=== PATIENT | female | born 1980 | race Caucasian/White ===

== ENCOUNTER 2017-09-15 11:02 | Emergency (ER) | payer SELFPAY ==
[2017-09-15 12:18] LABS: Hematocrit 38 % (35-47); Hemoglobin 12.9 g/dl (12.0-16.0); Mean Corpuscular HGB Conc 34 g/dl (31-36); Mean Corpuscular Hemoglobin 31 pg (27-31); Mean Corpuscular Volume 91 fL (80-97); Mean Platelet Volume 8 um3 (7.4-10.4); Red Blood Count 4.16 10^6/ul (4.0-5.4); Red Cell Distribution Width 14 % (10.5-15)
--- NOTE | 2017-09-15 12:22 | RAD ---
Indication: Wheezing, fever. 2 views of the chest including dual energy PA views demonstrate no mediastinal shift. Heart is of normal size and configuration. Lung [place] are clear. IMPRESSION: No active cardiopulmonary disease is noted.
[2017-09-15 12:32] LABS: BUN/Creatinine Ratio 8.2 (8-20); Calcium 8.9 mg/dL (8.6-10.3); EGFR African American 114.7 (>60); EGFR Non-African American 89.2 (>60); Globulin 3.4 g/dL (2-4); Potassium 2.9 mmol/L (3.5-5.0); Total Bilirubin 0.6 mg/dL (0.2-1.0); Total Protein 7.4 g/dL (6.4-8.9)
[2017-09-15] MEDS ORDERED: Ketorolac INJ* 30 MG/ML 1 ML VIAL IV PUSH ONE (12:34)
[2017-09-15] MEDS ORDERED: NS 0.9% 1000 ML* 2,000 ML IV ONE (12:34)
[2017-09-15] MEDS ORDERED: Ondansetron INJ* 2 MG/ML VIAL IV ONE (12:37)
[2017-09-15] MEDS ORDERED: guaiFENesin/CODIEN 100MG-10MG* 5 ML UDC PO ONE (12:38)
[2017-09-15 13:50] LABS: Urine Bacteria Absent (Absent); Urine Bilirubin Negative (Negative); Urine Glucose Negative (Negative); Urine Nitrite Negative (Negative)
[2017-09-15 15:18] VITALS: BP 154/88
--- NOTE | 2017-09-15 16:46 | ED ---
HPI Febrile Illness - HPI Summary HPI Summary: Patient presents to the ED with flu like symptoms. She states for 2 days she has been having fevers, sweats and chills as well as congestion, pressure in the chest worse with cough, productive sputum and conjunctivitis symptoms. She has been around sick contacts with the flu. Endorses muscle aches. Denies flu vaccine this year. Denies other health problems. She states symptoms have worsened over the past 2 days and she is unable to control the cough with OTC medications. She appears ill on arrival. VS indicated febrile illness with 100.4 temp, tachy at 110 and RR 22. - History of Current Complaint Chief Complaint: EDGeneral Time Seen by Provider: 09/15/17 11:13 Hx Obtained From: Patient Onset/Duration: Started Days Ago Timing: Constant Initial Severity: Moderate Current Severity: Moderate Pain Intensity: 0 Pain Scale Used: 0-10 Numeric Aggravating Factors: Nothing Alleviating Factors: Nothing Associated Signs and Symptoms: Chills, Cough, Nausea, Sore Throat, Weakness - Risk Factors Pseudomonas Risk Factors: Negative Serious Bacterial Infection Risk Factors: Negative - Allergy/Home Medications Allergies/Adverse Reactions: Allergies Allergy/AdvReac Type Severity Reaction Status Date / Time No Known Allergies Allergy Verified 09/15/17 11:08 PMH/Surg Hx/FS Hx/Imm Hx Previously Healthy: Yes - Immunization History Hx Pertussis Vaccination: No Immunizations Up to Date: Unable to Obtain/Confirm Infectious Disease History: No Infectious Disease History: Denies: Traveled Outside the [place] in Last 30 Days - Social History Occupation: Employed Full-time Lives: With Family Alcohol Use: None Hx Substance Use: No Substance Use Type: Reports: None Hx Tobacco Use: No Smoking Status (MU): Never Smoked Tobacco Review of Systems Positive: Fever, Chills, Fatigue, Skin Diaphoresis Positive: Drainage, Erythema Positive: Sore Throat, Nasal Discharge Negative: Palpitations, Chest Pain Positive: Cough Positive: Nausea Positive: no symptoms reported, see HPI Positive: Myalgia Neurological: Negative Psychological: Normal All Other Systems Reviewed And Are Negative: Yes Physical Exam Triage Information Reviewed: Yes Vital Signs On Initial Exam: Initial Vitals Temp Pulse Resp BP Pulse Ox 98.9 F 110 22 155/95 100 09/15/17 11:04 09/15/17 11:04 09/15/17 11:04 09/15/17 11:04 09/15/17 11:04 Vital Signs Reviewed: Yes Appearance: Positive: Well-Nourished, Ill-Appearing Skin: Positive: Diaphoretic Head/Face: Positive: Normal Head/Face Inspection Eyes: Positive: Conjunctiva Inflammed, Discharge - clear Neck: Positive: Nontender, No Lymphadenopathy Respiratory/Lung Sounds: Positive: Wheezes - bilateral Cardiovascular: Positive: Pulses are Symmetrical in both Upper and Lower Extremities Musculoskeletal: Positive: Strength/ROM Intact Neurological: Positive: Speech Normal Psychiatric: Positive: Normal, Affect/Mood Appropriate - [place] Coma Scale Coma Scale Total: 15 Diagnostics - Vital Signs Vital Signs Temp Pulse Resp BP Pulse Ox 09/15/17 15:17 99.0 F 99 17 154/88 98 09/15/17 13:16 100 F 100 20 159/87 98 09/15/17 11:04 98.9 F 110 22 155/95 100 - Laboratory Lab Results: Lab Results 09/15/17 09/15/17 09/15/17 Range/Units 12:06 12:06 12:16 WBC 13.0 H (3.5-10.8) 10^3/ul RBC 4.16 (4.0-5.4) 10^6/ul Hgb 12.9 (12.0-16.0) g/dl Hct 38 (35-47) % MCV 91 (80-97) fL MCH 31 (27-31) pg MCHC 34 (31-36) g/dl RDW 14 (10.5-15) % Plt Count 230 (150-450) 10^3/ul MPV 8 (7.4-10.4) um3 Neut % (Auto) 77.7 (38-83) % Lymph % (Auto) 11.8 L (25-47) % [place] % (Auto) 9.5 H (1-9) % Eos % (Auto) 0.3 (0-6) % Baso % (Auto) 0.7 (0-2) % Absolute Neuts (auto) 10.1 H (1.5-7.7) 10^3/ul Absolute Lymphs (auto) 1.5 (1.0-4.8) 10^3/ul Absolute Monos (auto) 1.2 H (0-0.8) 10^3/ul Absolute Eos (auto) 0 (0-0.6) 10^3/ul Absolute Basos (auto) 0.1 (0-0.2) 10^3/ul Absolute Nucleated RBC 0.01 10^3/ul Nucleated RBC % 0 Sodium 135 (133-145) mmol/L Potassium 2.9 L (3.5-5.0) mmol/L Chloride 100 L (101-111) mmol/L Carbon Dioxide 28 (22-32) mmol/L Anion Gap 7 (2-11) mmol/L BUN 6 (6-24) mg/dL Creatinine 0.73 (0.51-0.95) mg/dL Est GFR ( Amer) 114.7 (>60) Est GFR (Non-Af Amer) 89.2 (>60) BUN/Creatinine Ratio 8.2 (8-20) Glucose 117 H (70-100) mg/dL Calcium 8.9 (8.6-10.3) mg/dL Total Bilirubin 0.60 (0.2-1.0) mg/dL AST 20 (13-39) U/L ALT 20 (7-52) U/L Alkaline Phosphatase 53 (34-104) U/L Total Protein 7.4 (6.4-8.9) g/dL Albumin 4.0 (3.2-5.2) g/dL Globulin 3.4 (2-4) g/dL Albumin/Globulin Ratio 1.2 (1-3) Urine Color Urine Appearance Urine pH (5-9) Ur Specific [place] (1.010-1.030) Urine Protein (Negative) Urine Ketones (Negative) Urine Blood (Negative) Urine Nitrate (Negative) Urine Bilirubin (Negative) Urine Urobilinogen (Negative) Ur Leukocyte Esterase (Negative) Urine WBC (Auto) (Absent) Urine RBC (Auto) (Absent) Ur Squamous Epith Cells (Absent) Urine Bacteria (Absent) Urine Glucose (Negative) Urine Ascorbic Acid (Negative) Influenza A (Rapid) Negative (Negative) Influenza B (Rapid) Negative (Negative) Group A Strep Rapid (Negative) 09/15/17 09/15/17 Range/Units 12:18 13:25 WBC (3.5-10.8) 10^3/ul RBC (4.0-5.4) 10^6/ul Hgb (12.0-16.0) g/dl Hct (35-47) % MCV (80-97) fL MCH (27-31) pg MCHC (31-36) g/dl RDW (10.5-15) % Plt Count (150-450) 10^3/ul MPV (7.4-10.4) um3 Neut % (Auto) (38-83) % Lymph % (Auto) (25-47) % [place] % (Auto) (1-9) % Eos % (Auto) (0-6) % Baso % (Auto) (0-2) % Absolute Neuts (auto) (1.5-7.7) 10^3/ul Absolute Lymphs (auto) (1.0-4.8) 10^3/ul Absolute Monos (auto) (0-0.8) 10^3/ul Absolute Eos (auto) (0-0.6) 10^3/ul Absolute Basos (auto) (0-0.2) 10^3/ul Absolute Nucleated RBC 10^3/ul Nucleated RBC % Sodium (133-145) mmol/L Potassium (3.5-5.0) mmol/L Chloride (101-111) mmol/L Carbon Dioxide (22-32) mmol/L Anion Gap (2-11) mmol/L BUN (6-24) mg/dL Creatinine (0.51-0.95) mg/dL Est GFR ( Amer) (>60) Est GFR (Non-Af Amer) (>60) BUN/Creatinine Ratio (8-20) Glucose (70-100) mg/dL Calcium (8.6-10.3) mg/dL Total Bilirubin (0.2-1.0) mg/dL AST (13-39) U/L ALT (7-52) U/L Alkaline Phosphatase (34-104) U/L Total Protein (6.4-8.9) g/dL Albumin (3.2-5.2) g/dL Globulin (2-4) g/dL Albumin/Globulin Ratio (1-3) Urine Color Yellow Urine Appearance Cloudy Urine pH 7.0 (5-9) Ur Specific [place] 1.021 (1.010-1.030) Urine Protein Negative (Negative) Urine Ketones 1+ H (Negative) Urine Blood Negative (Negative) Urine Nitrate Negative (Negative) Urine Bilirubin Negative (Negative) Urine Urobilinogen Negative (Negative) Ur Leukocyte Esterase Trace H (Negative) Urine WBC (Auto) 1+(6-10/hpf) H (Absent) Urine RBC (Auto) 2+(6-10/hpf) H (Absent) Ur Squamous Epith Cells Present H (Absent) Urine Bacteria Absent (Absent) Urine Glucose Negative (Negative) Urine Ascorbic Acid * H (Negative) Influenza A (Rapid) (Negative) Influenza B (Rapid) (Negative) Group A Strep Rapid Negative (Negative) Result Diagrams: 09/15/17 12:06 09/15/17 12:06 Lab Statement: Any lab studies that have been ordered have been reviewed, and results considered in the medical decision making process. Course/Dx - Course Course Of Treatment: VS indicated febrile illness with 100.4 temp, tachy at 110 and RR 22. Labs obtained which shows WBC at 13. She is given 2L fluids and toradol and zofran. She is rechecked in 2 hours and temp is 99.2; HR at 98 and RR 16. She feels improved. Flu and strep negative. UA shows a mild UTI. She is given bactrim for this. Likely viral URI illness and she is encouraged fluids, humidifier, given flonase and prescriptions for bactrim, robitussin with codeine and allergy medication. She will follow up with her PCP and I have given her strict return precautions. Chest xray obtained and shows no active pulmonary disease, however she is wheezing. She is likely having bronchospasms. She is to return if any of these symptoms worsen or fail to improve with bactrim and other medications given. - Febrile Illness Differential Diagnoses: Fever of Unknown Origin, Pneumonia, Sepsis - Diagnoses Provider Diagnoses: Viral respiratory illness, UTI (urinary tract infection) Discharge - Discharge Plan Condition: Stable Disposition: HOME Prescriptions: Fluticasone NASAL SPRAY 50MCG* [Flonase NASAL SPRAY 50MCG*] 2 spray BOTH NARES DAILY #1 btl Guaifenesin-Codeine [Codeine/Guaifenesin 100-10 mg/5Ml] 10 ml PO BEDTIME PRN # 100 ml MDD 10 PRN Reason: Cough Polymyx/Trimethoprim OPTH* [Polytrim OPHTH*] 1 drop BOTH EYES Q6H #1 btl Sulfamethox/Trimethoprim DS* [Bactrim DS 800/160 TAB*] 1 tab PO BID #10 tab MDD 2 Patient Education Materials: Upper Respiratory Infection (ED) Referrals: No Primary Care Phys,NOPCP [Primary Care Provider] - Additional Instructions: Upper Respiratory Infection You appear to have a viral upper respiratory/bronchitis infection. Take prescribed medication as directed. Nasal steroid in both nares once daily Resume your at home potassium tabs Bactrim twice daily for 5 days for UTI Robitusin with codeine at bedtime only, otherwise over the counter robitussin during the day Tylenol 650mg three times daily for fevers Polymyxin drops to bilateral eyes x 4-5 days for conjunctivitis symptoms. Also recommend doing saline rinses, salt water gargles, taking zicam and drinking emergen-c (available over the counter). Extra pillow at bedtime. Hot showers. Increase fluid intake. Get plenty of rest. Any new or worsening symptoms (fever, difficulty breathing, worsening symptoms) please seek medical attention immediately. Follow up with PCP for re-check and evaluation.
== END 2017-09-15 15:17 | disposition home or self-care (01) ==
LOC: ED 11:02
DX: N39.0 Urinary tract infection, site not specified (principal); B34.9 Viral infection, unspecified
CPT/HCPCS: 36415; 71020; 80053; 81003; 81015; 85025; 87086; 87502; 87651; 96361; 96374; 96375; 99282; A9270-GY; J1885; J2405